=== PATIENT | female | born 1995 | race Caucasian/White ===

== ENCOUNTER → 2016-08-30 | Outpatient (CLI) | payer OTHER, MEDICAID ==
[~2016-08-30] MED LIST: ACET50TA PO; ANUS2.5C2 EXT; DOCU10ELUD PO; IBUP80TA PO; MOM30SS PO; PNV-CAP5 PO
[2016-08-30 13:07] LABS: BASO % 0.4 % (0.0-1.0); EOS # 0.1 K/mm3 (0.0-0.50); EOS % 0.8 % (0.0-3.0); LARGE UNSTAINED CELL # 0.1 K/mm3 (0.0-0.4); LARGE UNSTAINED CELL % 1.1 % (0.0-4.0); LYMPH # 1.7 K/mm3 (1.5-6.5); LYMPH % 21.8 % (24.0-44.0); MEAN CORPUSCULAR HEMOGLOBIN 30.8 pg (27.0-33.0); MEAN CORPUSCULAR HGB CONC 34.5 g/dl (32.0-36.5); MEAN CORPUSCULAR VOLUME 89.3 fl (80.0-96.0); MONO # 0.3 K/mm3 (0.0-0.8); MONO % 4.5 % (0.0-5.0); NEUTROPHILS # 5.3 K/mm3 (1.8-7.7); NEUTROPHILS % 71.5 % (36.0-66.0); PLATELET COUNT, AUTOMATED 235 k/mm3 (150-450); RED CELL DISTRIBUTION WIDTH 12.8 % (11.5-14.5); WHITE BLOOD COUNT 7.4 K/mm3 (4.0-10.0)
[2016-08-30 13:31] LABS: HBsAg Prenatal NEGATIVE (NEGATIVE)
[2016-08-30 14:26] LABS: CONTROL LINE INT CTR LINE PRESENT; HIV SCRN NEGATIVE (NEGATIVE); HIV SCRN1 NEGATIVE (NEGATIVE)
== END ==
LOC: M SMT 09:42
PROVIDERS: ATTEND Specialist
DX: Z36 Encounter for antenatal screening of mother (principal); Z3A.00 Weeks of gestation of pregnancy not specified

== ENCOUNTER → 2016-09-08 | Outpatient (REF) | payer OTHER, MEDICAID | LOC: M LAB REF 17:14 | PROVIDERS: ATTEND Advanced Practice Midwife | DX: Z36 Encounter for antenatal screening of mother (principal); Z3A.00 Weeks of gestation of pregnancy not specified ==

== ENCOUNTER → 2016-10-01 | Outpatient (CLI) | payer OTHER, MEDICAID ==
--- NOTE | 2016-10-01 15:34 | REP ---
Obstetric ultrasound for anatomy: There is a single intrauterine gestation in a breech presentation. There is movement and cardiac activity. heart rate is 153 beats per minute. The placenta is posterior. There is no placenta previa or abruptio. Placenta demonstrates grade zero maturity. The amniotic fluid volume subjectively is normal. The cervix is 3.4 cm length. Maternal adnexa and cul-de-sac are unremarkable. By today's measurements the gestational age is 20 weeks 0 days with an [place] of 02/18/2017. The LMP is unknown. weight is 356 grams (0 pounds, 12 ounces). This is the 64th percentile for 20 weeks 0 days. The following anatomic structures are identified and are unremarkable: Cranium, choroid plexus, cavum, cerebellum, posterior fossa, cisterna magna, facial profile, lungs, four-chamber heart, cardiac right and left ventricular outflow tracts, diaphragm, stomach, cord insertion, three-vessel cord, kidneys, bladder, spine and upper lower extremities. No anomalies are identified. Sign taking Signed by Roger Sagastume MD 10/01/2016 03:25 P
== END ==
LOC: M SMT 13:50
PROVIDERS: ATTEND Advanced Practice Midwife
DX: Z36 Encounter for antenatal screening of mother (principal); O32.1XX0 Maternal care for breech presentation, not applicable or unspecified; Z3A.20 20 weeks gestation of pregnancy

== ENCOUNTER → 2016-10-06 | Outpatient (CLI) | payer OTHER | LOC: M SMT 14:16 | PROVIDERS: ATTEND Advanced Practice Midwife | DX: Z31.438 Encounter for other genetic testing of female for procreative management (principal); Z3A.20 20 weeks gestation of pregnancy ==

== ENCOUNTER → 2016-11-30 | Outpatient (CLI) | payer OTHER, MEDICAID ==
[2016-11-30 20:16] LABS: MEAN CORPUSCULAR HEMOGLOBIN 30.9 pg (27.0-33.0); MEAN CORPUSCULAR HGB CONC 33.4 g/dl (32.0-36.5); MEAN CORPUSCULAR VOLUME 92.4 fl (80.0-96.0); RED CELL DISTRIBUTION WIDTH 12.6 % (11.5-14.5)
== END ==
LOC: M SMT 13:40
PROVIDERS: ATTEND Advanced Practice Midwife
DX: Z36 Encounter for antenatal screening of mother (principal); Z3A.00 Weeks of gestation of pregnancy not specified

== ENCOUNTER → 2017-01-25 | Outpatient (REF) | payer OTHER, MEDICAID ==
[~2017-01-25] MED LIST changes: +DIBU10OI TOP; +IBUP-1114 PO; +PRENTAB9 PO
== END ==
LOC: M LAB REF 12:54
PROVIDERS: ATTEND Advanced Practice Midwife
DX: Z34.83 Encounter for supervision of other normal pregnancy, third trimester (principal)

== ENCOUNTER 2017-02-20 02:23 | Inpatient (IN) | payer OTHER, MEDICAID ==
[~2017-02-20] VITALS: Ht 154.9 cm; Wt 97.0 kg
[2017-02-20] VITALS (18 sets, daily range): BP systolic 98–130; BP diastolic 54–75
[~2017-02-20 02:23] MED LIST changes: -DIBU10OI TOP; -IBUP-1114 PO; -PRENTAB9 PO
[2017-02-20 03:07] LABS: MEAN CORPUSCULAR HEMOGLOBIN 28.1 pg (27.0-33.0); MEAN CORPUSCULAR HGB CONC 33.3 g/dl (32.0-36.5); MEAN CORPUSCULAR VOLUME 84.4 fl (80.0-96.0); RED CELL DISTRIBUTION WIDTH 13.3 % (11.5-14.5); WHITE BLOOD COUNT 11.5 K/mm3 (4.0-10.0)
--- NOTE | 2017-02-20 06:30 | HPE ---
DATE OF ADMISSION: 02/20/2017 HISTORY: 21-year-old, (G) 2, para (P) 1 female, at 40-2/7 weeks gestation by 20 week ultrasound, estimated date of confinement (EDC) of 02/18/2017, presents with regular contractions every 3-4 minutes for the last several hours. She passed her mucous plug She denies vaginal bleeding. COURSE: The patient initiated care at 20 weeks gestation on 09/08/2016. Her blood pressure was 92/56. She had no complications during care. OBSTETRICAL HISTORY: 2012, 41 week vaginal delivery, 8 pound 14 ounce female , no complications. MEDICAL HISTORY: None. SURGERIES: Noncontributory. ALLERGIES: None. SOCIAL HISTORY: The patient smokes cigarettes. She denies alcohol or drug use during . FAMILY HISTORY: Noncontributory. PHYSICAL EXAMINATION: Blood pressure 118/70. Pulse 84. She appeared mildly uncomfortable. Head and neck exam normal. Lungs clear. Heart regular rate and rhythm. Abdomen nontender, gravid. heart tones category 1. Contractions every 4 minutes. Sterile vaginal exam: 4 cm, 70% and -2 station, vertex. Extremities nontender. LABORATORIES: Blood type A negative, rubella immune. RPR nonreactive. Hepatitis B and C negative. HIV negative. GBS negative. ASSESSMENT: 21-year-old, 2, para 1 female, at 40-2/7 weeks gestation, presents in early labor. Plan is to admit on 02/20/2017.
[2017-02-20] MEDS ORDERED: OXYTOCIN 30 UNITS IN 0.9% NaCl 500ML IV BAG (J2590) As Ordered ONE (17:25)
[2017-02-20] MEDS ORDERED: PROMETHAZINE INJ 25 MG/ML VIAL (J2550) IV ONE (18:00)
[2017-02-20] MEDS ORDERED: BUTORPHANOL 2 MG/ML INJ (J0595) IV ONE (18:00)
[2017-02-20 20:16] LABS: CORD GAS ABE A -4.1; CORD GAS HCO3 A 21.3 MEQ/L; CORD GAS O2 SAT A 86.1 %; CORD GAS PCO2 A 40.4 mmHg; CORD GAS PH A 7.34 UNITS; CORD GAS PO2 A 44.1 mmHg; CORD GAS SBC A 20.8 MEQ/L; CORD GAS TCO2 A 22.5 MEQ/L
[2017-02-20 20:18] LABS: CORD GAS ABE V -3.9; CORD GAS HCO3 V 22.4 MEQ/L; CORD GAS O2 SAT V 70.5 %; CORD GAS PCO2 V 44.7 mmHg; CORD GAS PH V 7.317 UNITS; CORD GAS PO2 V 31.9 mmHg; CORD GAS SBC V 20.6 MEQ/L; CORD GAS TCO2 V 23.7 MEQ/L
[2017-02-20] MEDS ORDERED: OXYTOCIN DRIP 30 UNITS in APPROPRIATE DILUENT 1 EA IV SCH (20:44)
[2017-02-20] MEDS ORDERED: DIBUCAINE 1% OINTMENT 30GM TOP PRN (20:45)
[2017-02-20] MEDS ORDERED: ANUSOL HC CREAM 30GM TOP PRN (20:45)
[2017-02-20] MEDS ORDERED: miSOPROStol 200 MCG TAB (S0191) PR ONE (20:45)
[2017-02-20] MEDS ORDERED: ACETAMINOPHEN 500 MG TAB PO PRN (20:45)
[2017-02-20] MEDS ORDERED: MEASLES,MUMPS,RUBELLA VACCINE INJ (MMR-II) (90707) SC SCH (20:45)
[2017-02-20] MEDS ORDERED: MOM 30ML SUSPENSION UDC PO PRN (20:45)
[2017-02-20] MEDS ORDERED: LIDOCAINE 1% MDV INJ 50 ML VIAL INFIL ONE (20:45)
[2017-02-20] MEDS ORDERED: RHOGAM 300 MCG (1500 IU) INJ (J2790) IM SCH (20:45)
[2017-02-20] MEDS ORDERED: DOCUSATE SODIUM 100 MG CAP PO PRN (20:45)
[2017-02-20] MEDS: METHYLERGONOVINE MALEATE 0.2 MG TAB PO SCH (21:12)
[2017-02-20] MEDS: IBUPROFEN 800 MG TAB PO PRN (21:31)
[2017-02-21] MEDS: METHYLERGONOVINE MALEATE 0.2 MG TAB PO SCH ×3 (04:43→16:04)
--- NOTE | 2017-02-21 05:08 | DN ---
DATE OF SERVICE: 02/20/2017 Spontaneous active labor. Artificial rupture of membranes clear fluid, moderate amount at 1515. Utilized Stadol and Phenergan for labor coping times one. Fully dilated at 1956. Head delivered left occiput anterior (MEET) at 2001, then restituted to left occiput posterior (LOP), 2-minute shoulder dystocia encountered relieved with Wes, suprapubic pressure, and attempts to deliver the posterior shoulder. intensive care unit (NICU) and assistance were requested. Viable male delivered LOP after relief of obstruction and reduction of loose nuchal cord at 2003. Limp noted. Tactile stimulation and bulb suction at the perineum. Cord immediately doubly clamped and cut by blacksmith hammer operator and brought to warmer for suction by nurses. Infant received approximately [address] Zhang arrived shortly after delivery. scores 5 and 9. Cord gases sent. Results arterial 7.34 and venous 7.317. moving all extremities equally. Placenta Lantigua intact with three-vessel cord and long trailing membranes at 2011. Marginal cord insertion was noted. Fundus firmed with massage and intravenous (IV) Pitocin bolus. Estimated blood loss 500 mL. Misoprostol 1000 mcg rectally placed with excellent control with uterine atony. Perineum, cervix and vagina inspected. First-degree laceration to posterior vaginal wall repaired with 3-0 Vicryl Rapide. Sponge, sharp and instrument count correct. Infant weight 4706 grams, 10 pounds 6 ounces. Mother is naming her son Michael. was attended by Imelda Negron, student nurse blacksmith hammer operator and by myself. [facility]
[2017-02-21 06:18] VITALS: BP 132/67
[2017-02-21] MEDS: PRENATAL VITAMINS CHEWABLE TABLET PO SCH (08:54)
[2017-02-21] MEDS ORDERED: PRENTAB9 PO (09:26)
[2017-02-21] MEDS ORDERED: ACET50TA PO (09:28)
[2017-02-21] MEDS ORDERED: IBUP-1114 PO (09:30)
[2017-02-21] MEDS: IBUPROFEN 800 MG TAB PO PRN (16:06)
[2017-02-21 17:52] VITALS: BP 113/57
[2017-02-21] MEDS ORDERED: METHYLERGONOVINE MALEATE 0.2 MG TAB PO PRN (22:00)
[2017-02-22 06:04] VITALS: BP 109/62
[2017-02-22] MEDS ORDERED: DIBU10OI TOP (07:45)
[2017-02-22] MEDS: PRENATAL VITAMINS CHEWABLE TABLET PO SCH (07:59)
== END 2017-02-22 09:37 | disposition home or self-care (01) | DRG 560 ==
LOC: M LDO 02:23 → EEVIPCON 02:41 → M LDI 02:41 → M OBS 22:29
PROVIDERS: ADMIT Specialist; ATTEND Advanced Practice Midwife
PROC: 10E0XZZ Delivery of Products of Conception, External Approach (ICD-10-PCS; principal; 2017-02-20)
PROC: 0HQ9XZZ Repair Perineum Skin, External Approach (ICD-10-PCS; 2017-02-20)
PROC: 10907ZC Drainage of Amniotic Fluid, Therapeutic from Products of Conception, Via Natural or Artificial Opening (ICD-10-PCS; 2017-02-20)
DX: O48.0 Post-term pregnancy (principal); F17.210 Nicotine dependence, cigarettes, uncomplicated; O99.334 Smoking (tobacco) complicating childbirth; Z3A.40 40 weeks gestation of pregnancy; O66.0 Obstructed labor due to shoulder dystocia; O69.81X0 Labor and delivery complicated by cord around neck, without compression, not applicable or unspecified; O70.0 First degree perineal laceration during delivery; Z37.0 Single live birth

== ENCOUNTER → 2017-05-11 | Outpatient (REF) | payer OTHER, MEDICAID ==
[~2017-05-11] MED LIST changes: +DIBU10OI TOP; +IBUP-1114 PO; +PRENTAB9 PO
== END ==
LOC: M LAB REF 13:19
PROVIDERS: ATTEND Advanced Practice Midwife
DX: Z12.4 Encounter for screening for malignant neoplasm of cervix (principal)

== ENCOUNTER → 2021-07-14 | Outpatient (CLI) | payer OTHER ==
[~2021-07-14] MED LIST changes: -ACET50TA PO; -DIBU10OI TOP; +DIBU28OI2 TOP; -DOCU10ELUD PO; +DOCU5LIQ PO; +MAPA500T17 PO; +MAPA500T2 PO
== END ==
LOC: M PLALAB 10:35
PROVIDERS: ATTEND Advanced Practice Midwife
DX: O20.0 Threatened abortion (principal)

== ENCOUNTER 2021-07-16 10:03 | Emergency (ER) | payer OTHER ==
[~2021-07-16] VITALS: Ht 154.9 cm; Wt 90.9 kg
[2021-07-16 10:47] LABS: BASO # 0.1 10^3/uL (0.0-0.2); BASO % 0.8 % (0.0-1.0); EOS % 0.5 % (0.0-3.0); HEMATOCRIT 42.4 % (36.0-47.0); HEMOGLOBIN 13.9 g/dl (12.0-15.5); LYMPH # 2.1 10^3/uL (1.5-5.0); LYMPH % 26.9 % (24.0-44.0); MEAN CORPUSCULAR HEMOGLOBIN 30.2 pg (27.0-33.0); MEAN CORPUSCULAR HGB CONC 32.8 g/dl (32.0-36.5); MONO # 0.5 10^3/uL (0.0-0.8); MONO % 6.5 % (2.0-8.0); PLATELET COUNT, AUTOMATED 210 10^3/uL (150-450); RED BLOOD COUNT 4.61 10^6/uL (4.00-5.40); WHITE BLOOD COUNT 7.7 10^3/uL (4.0-10.0)
[2021-07-16 11:34] LABS: BLOOD UREA NITROGEN 9 MG/DL (7-18); CALCIUM LEVEL 9.2 MG/DL (8.5-10.1); CARBON DIOXIDE LEVEL 29 MEQ/L (21-32); CHLORIDE LEVEL 108 MEQ/L (98-107); CREATININE FOR GFR 0.64 MG/DL (0.55-1.30); GLOMERULAR FILTRATION RATE > 60.0 (>60); GLUCOSE, FASTING 99 MG/DL (70-100); HCG, SERUM QUANTITATIVE 1146 MIU/ML; POTASSIUM SERUM 4.2 MEQ/L (3.5-5.1); SODIUM LEVEL 142 MEQ/L (136-145)
[2021-07-16] MEDS ORDERED: RHOGAM 300 MCG (1500 IU) INJ (J2790) IM ONE (14:05)
[2021-07-16 14:08] LABS: GC DNA AMPLIFICATION NEGATIVE (NEGATIVE)
[2021-07-16] MEDS ORDERED: DOXYCYCLINE HYCLATE 100MG TABLET PO ONE (14:30)
[2021-07-16 14:58] VITALS: BP 121/67
[2021-07-16] MEDS ORDERED: DOXY-443 PO (15:00)
== END 2021-07-16 15:09 | disposition home or self-care (01) ==
LOC: M ED 10:03
DX: O20.9 Hemorrhage in early pregnancy, unspecified (principal); F17.210 Nicotine dependence, cigarettes, uncomplicated; O99.330 Smoking (tobacco) complicating pregnancy, unspecified trimester; O98.319 Other infections with a predominantly sexual mode of transmission complicating pregnancy, unspecified trimester; A74.9 Chlamydial infection, unspecified; Z3A.00 Weeks of gestation of pregnancy not specified
CPT/HCPCS: 76801; 76817; 80048; 81001; 84702; 85025; 86850; 86900; 86901; 87210; 87808; 87810; 87850; 93976; 96372; 99284; J2790

== ENCOUNTER → 2021-09-04 | Outpatient (CLI) | payer OTHER ==
[~2021-09-04] MED LIST changes: +DOXY-443 PO
[2021-09-04 16:39] LABS: GC DNA AMPLIFICATION NEGATIVE (NEGATIVE)
== END ==
LOC: M PLALAB 12:10
PROVIDERS: ATTEND Obstetrics & Gynecology
DX: Z20.2 Contact with and (suspected) exposure to infections with a predominantly sexual mode of transmission (principal)

== ENCOUNTER → 2022-01-21 | Outpatient (REF) | LOC: M LABSMTC 11:09 | PROVIDERS: ATTEND Family Medicine | DX: Z11.52 Encounter for screening for COVID-19 (principal) ==

== ENCOUNTER → 2022-02-10 | Outpatient (REF) | LOC: M EMP 12:43 | PROVIDERS: ATTEND Family Medicine | DX: Z11.52 Encounter for screening for COVID-19 (principal) ==

== ENCOUNTER → 2022-02-14 | Outpatient (REF) | LOC: M LABSMTC 10:17 | PROVIDERS: ATTEND Family Medicine | DX: Z11.52 Encounter for screening for COVID-19 (principal) ==

== ENCOUNTER → 2022-05-24 | Outpatient (REF) ==
[2022-05-24 13:53] LABS: RSV AMPLIFICATION NEGATIVE (NEGATIVE)
== END ==
LOC: M LABSMTC 11:37
PROVIDERS: ATTEND Family Medicine
DX: Z00.00 Encounter for general adult medical examination without abnormal findings (principal)

== ENCOUNTER → 2022-10-21 | Outpatient (REF) | payer OTHER | LOC: M LAB REF 16:01 | PROVIDERS: ATTEND Physician Assistant | DX: N91.2 Amenorrhea, unspecified (principal) ==

== ENCOUNTER → 2023-01-17 | Outpatient (CLI) | payer OTHER ==
[2023-01-17 13:47] LABS: HEMATOCRIT 39.7 % (36.0-47.0); HEMOGLOBIN 13.2 g/dl (12.0-15.5); MEAN CORPUSCULAR HEMOGLOBIN 30.8 pg (27.0-33.0); MEAN CORPUSCULAR HGB CONC 33.2 g/dl (32.0-36.5); MEAN CORPUSCULAR VOLUME 92.5 fl (80.0-96.0); PLATELET COUNT, AUTOMATED 227 10^3/uL (150-450); RED BLOOD COUNT 4.29 10^6/uL (4.00-5.40); WHITE BLOOD COUNT 8.6 10^3/uL (4.0-10.0)
[2023-01-17 14:40] LABS: HIV 1&2 SCREEN NEGATIVE (NEGATIVE)
[2023-01-17 14:49] LABS: HEPATITIS C VIRUS ABY INDEX 0.13 INDEX (<0.8)
[2023-01-17 15:07] LABS: GC DNA AMPLIFICATION NEGATIVE (NEGATIVE)
== END ==
LOC: M PLALAB 09:14
PROVIDERS: ATTEND Specialist
DX: Z34.81 Encounter for supervision of other normal pregnancy, first trimester (principal)

== ENCOUNTER → 2023-03-04 | Outpatient (CLI) | payer OTHER | LOC: M WHC 08:49 | PROVIDERS: ATTEND Advanced Practice Midwife | DX: Z34.92 Encounter for supervision of normal pregnancy, unspecified, second trimester (principal) ==

== ENCOUNTER → 2023-04-04 | Outpatient (REF) | LOC: M EMP 11:59 | PROVIDERS: ATTEND Family Medicine | DX: Z11.52 Encounter for screening for COVID-19 (principal) ==

== ENCOUNTER → 2023-04-19 | Outpatient (CLI) | payer OTHER ==
[2023-04-19 15:09] LABS: HEMATOCRIT 34.7 % (36.0-47.0); HEMOGLOBIN 11.2 g/dl (12.0-15.5); MEAN CORPUSCULAR HEMOGLOBIN 29.9 pg (27.0-33.0); MEAN CORPUSCULAR HGB CONC 32.3 g/dl (32.0-36.5); MEAN CORPUSCULAR VOLUME 92.8 fl (80.0-96.0); PLATELET COUNT, AUTOMATED 205 10^3/uL (150-450); RED BLOOD COUNT 3.74 10^6/uL (4.00-5.40); WHITE BLOOD COUNT 9.4 10^3/uL (4.0-10.0)
[2023-04-19 16:26] LABS: GC DNA AMPLIFICATION NEGATIVE (NEGATIVE)
== END ==
LOC: M PLALAB 08:13
PROVIDERS: ATTEND Obstetrics & Gynecology
DX: Z34.92 Encounter for supervision of normal pregnancy, unspecified, second trimester (principal)

== ENCOUNTER → 2023-05-30 | Outpatient (REF) ==
[2023-05-30 09:28] LABS: RSV AMPLIFICATION NEGATIVE (NEGATIVE)
== END ==
LOC: M EMP 07:25
PROVIDERS: ATTEND Family Medicine
DX: Z11.52 Encounter for screening for COVID-19 (principal)

== ENCOUNTER → 2023-06-23 | Outpatient (REF) | payer OTHER | LOC: M SFHCWAGY 15:37 | PROVIDERS: ATTEND Obstetrics & Gynecology | DX: Z36.85 Encounter for antenatal screening for Streptococcus B (principal); Z3A.36 36 weeks gestation of pregnancy ==

== ENCOUNTER → 2023-06-24 | Outpatient (CLI) | payer OTHER | LOC: M WHC 08:05 | PROVIDERS: ATTEND Obstetrics & Gynecology | DX: O24.419 Gestational diabetes mellitus in pregnancy, unspecified control (principal); Z3A.36 36 weeks gestation of pregnancy ==

== ENCOUNTER 2023-07-07 07:21 | Inpatient (IN) | payer OTHER, MEDICAID ==
[~2023-07-07] VITALS: Ht 154.9 cm; Wt 102.5 kg
[2023-07-07] VITALS (11 sets, daily range): BP systolic 110–147; BP diastolic 55–86; TEMP 98.7; O2SAT 96–100
[2023-07-07] MEDS ORDERED: HOME MED LIST COMPLETE! XX SCH (07:55)
[2023-07-07] MEDS ORDERED: METHYLERGONOVINE MALEATE 0.2MG/ML 1ML VIAL IM PRN (08:05)
[2023-07-07] MEDS ORDERED: TRANEXAMIC ACID INJection 1,000 MG in NS 100 ML IV PRN (08:05)
[2023-07-07] MEDS ORDERED: CARBOPROST TROMETHAMINE 250 MCG/ML AMP IM PRN (08:05)
[2023-07-07] MEDS ORDERED: LACTATED RINGER'S 1000 ML IV PRN (08:05)
[2023-07-07] MEDS ORDERED: OXYTOCIN DRIP 30 UNITS in IV 1 EA IV PRN ×4 (08:05)
[2023-07-07 08:54] LABS: HEMOGLOBIN 10.4 g/dl (12.0-15.5); MEAN CORPUSCULAR HGB CONC 32.5 g/dl (32.0-36.5); PLATELET COUNT, AUTOMATED 195 10^3/uL (150-450); RED BLOOD COUNT 3.72 10^6/uL (4.00-5.40); WHITE BLOOD COUNT 8.4 10^3/uL (4.0-10.0)
[2023-07-07] MEDS ORDERED: ceFAZolin SOD 2 GM in IV 1 EA IV ONE (10:35)
[2023-07-07] MEDS ORDERED: BICITRA 30ML SOLN UDC PO ONE (10:35)
[2023-07-07] MEDS ORDERED: LR 1,000 ML IV SCH ×2 (10:55→17:05)
[2023-07-07] MEDS ORDERED: ONDANSETRON 4MG 2ML VIAL As Ordered ONE (14:36)
[2023-07-07] MEDS ORDERED: MORPHINE PRES-FREE INJ 10 MG/10 ML VIAL As Ordered ONE (14:36)
[2023-07-07] MEDS ORDERED: KETOROLAC 60MG 2ML VIAL As Ordered ONE (14:36)
[2023-07-07] MEDS ORDERED: PHENYLephrine 500MCG 5ML (100MCG/ML) SYRINGE As Ordered ONE (15:02)
[2023-07-07] MEDS ORDERED: ePHEDrine SULFATE 25 MG/5 ML(5MG/ML) SYRINGE As Ordered ONE (15:02)
[2023-07-07] MEDS ORDERED: OXYTOCIN 30UNITS IN 0.9% NaCl 500ML IV BAG As Ordered ONE (15:05)
[2023-07-07] MEDS ORDERED: METOCLOPRAMIDE INJ 10MG/2ML VIAL As Ordered ONE (15:17)
[2023-07-07] MEDS ORDERED: MIDAZOLAM INJ 2MG/2ML VIAL As Ordered ONE (15:54)
[2023-07-07] MEDS ORDERED: CARBOPROST TROMETHAMINE 250 MCG/ML AMP ONE (16:00)
[2023-07-07] MEDS ORDERED: METHYLERGONOVINE MALEATE 0.2MG/ML 1ML VIAL ONE (16:00)
[2023-07-07 16:17] LABS: HEMOGLOBIN 9.8 g/dl (12.0-15.5); MEAN CORPUSCULAR HEMOGLOBIN 27.5 pg (27.0-33.0); MEAN CORPUSCULAR HGB CONC 31.6 g/dl (32.0-36.5); MEAN CORPUSCULAR VOLUME 87.1 fl (80.0-96.0); PLATELET COUNT, AUTOMATED 157 10^3/uL (150-450); RED BLOOD COUNT 3.56 10^6/uL (4.00-5.40); WHITE BLOOD COUNT 9.1 10^3/uL (4.0-10.0)
[2023-07-07 16:28] LABS: PARTIAL THROMBOPLASTIN TIME 24.3 SECONDS (24.8-34.2)
[2023-07-07 16:29] LABS: INR 1.06; PROTHROMBIN TIME 13.5 SECONDS (12.5-14.5)
[2023-07-07] MEDS: ACETAMINOPHEN 500 MG TAB PO SCH ×2 (16:40→21:41)
[2023-07-07] MEDS ORDERED: RHOGAM 300MCG (1500IU) INJ IM SCH (16:40)
[2023-07-07] MEDS ORDERED: DOCUSATE SODIUM 100MG CAPSULE PO PRN (16:40)
[2023-07-07] MEDS ORDERED: oxyCODONE 5MG TAB PO PRN (16:40)
[2023-07-07] MEDS ORDERED: SIMETHICONE 80MG CHEW TAB PO PRN (16:40)
[2023-07-07] MEDS ORDERED: MEPERIDINE 25 MG/ML 1ML VIAL IV PRN (17:05)
[2023-07-07] MEDS ORDERED: **NOTE PATIENT COMMENT** MISC XX SCH (17:05)
[2023-07-07] MEDS ORDERED: NALBUPHINE HCL 1MG/0.1ML (100MG/10ML) MDV IV PRN (17:05)
[2023-07-07] MEDS ORDERED: diphenhydrAMINE 50MG/ML VIAL IV PRN (17:05)
[2023-07-07] MEDS ORDERED: NALOXONE INJ 0.4MG/1ML VIAL IV PRN ×2 (17:05)
[2023-07-07] MEDS ORDERED: LOPERAMIDE 2 MG CAPLET PO PRN (17:05)
[2023-07-07] MEDS: SLF 3 ML SYR IV SCH (17:05)
[2023-07-07] MEDS ORDERED: MORPHINE 2 MG/ML 1ML VIAL IV PRN (17:05)
[2023-07-07] MEDS ORDERED: METOCLOPRAMIDE INJ 10MG/2ML VIAL IV PRN (17:05)
[2023-07-07] MEDS ORDERED: ONDANSETRON 4MG 2ML VIAL IV PRN (17:05)
[2023-07-07] MEDS ORDERED: MEPERIDINE 25 MG/ML 1ML VIAL As Ordered ONE (17:37)
[2023-07-07] MEDS ORDERED: COLA100C5 PO (19:32)
[2023-07-07] MEDS ORDERED: IBUP-1022 PO (19:32)
[2023-07-07] MEDS ORDERED: OXYC-517 PO (19:32)
[2023-07-07] MEDS ORDERED: ACET-683 PO (19:32)
[2023-07-07] MEDS: KETOROLAC 30 MG/ML 1ML VIAL IV SCH (21:41)
[2023-07-08] MEDS: SLF 3 ML SYR IV SCH ×2 (01:05→08:04)
[2023-07-08] MEDS: ACETAMINOPHEN 500 MG TAB PO SCH ×4 (03:53→23:04)
[2023-07-08] MEDS: KETOROLAC 30 MG/ML 1ML VIAL IV SCH ×2 (03:53→09:28)
[2023-07-08 06:00] VITALS: BP 108/52; O2SAT 99
[2023-07-08 06:33] LABS: HEMATOCRIT 27.1 % (36.0-47.0); HEMOGLOBIN 8.9 g/dl (12.0-15.5); MEAN CORPUSCULAR HEMOGLOBIN 28.7 pg (27.0-33.0); MEAN CORPUSCULAR HGB CONC 32.8 g/dl (32.0-36.5); MEAN CORPUSCULAR VOLUME 87.4 fl (80.0-96.0); PLATELET COUNT, AUTOMATED 122 10^3/uL (150-450); WHITE BLOOD COUNT 12.6 10^3/uL (4.0-10.0)
[2023-07-08] MEDS: oxyCODONE 5MG TAB PO PRN ×2 (07:19→15:44)
[2023-07-08] MEDS: PRENATAL VITAMINS CHEWABLE TABLET PO SCH (08:03)
[2023-07-08] MEDS: ENOXAPARIN 30MG/0.3ML SYRINGE (J1650 PER 10MG) SC SCH ×2 (08:04→20:17)
[2023-07-08] MEDS ORDERED: TRANEXAMIC ACID 100 MG/ML 10ML VIAL As Ordered ONE (08:38)
[2023-07-08] MEDS ORDERED: PRENATAL VITAMINS CHEWABLE TABLET PO SCH (09:00)
[2023-07-08 10:00] VITALS: BP 122/68; O2SAT 100
[2023-07-08 14:00] VITALS: BP 128/75; O2SAT 100
[2023-07-08] MEDS: IBUPROFEN 600MG TAB PO SCH ×2 (16:51→23:04)
[2023-07-08 18:03] VITALS: BP 129/73; O2SAT 100
[2023-07-08 22:00] VITALS: BP 99/57; O2SAT 99
[2023-07-09 02:00] VITALS: BP 110/55; O2SAT 98
[2023-07-09] MEDS: ACETAMINOPHEN 500 MG TAB PO SCH ×2 (04:49→11:19)
[2023-07-09] MEDS: IBUPROFEN 600MG TAB PO SCH ×2 (04:50→11:18)
[2023-07-09 06:00] VITALS: BP 116/69; O2SAT 100
[2023-07-09] MEDS ORDERED: MEASLES,MUMPS,RUBELLA VACCINE INJ (MMR-II) SC.IMMUN ONE (09:00)
[2023-07-09] MEDS: PRENATAL VITAMINS CHEWABLE TABLET PO SCH (09:24)
[2023-07-09] MEDS: ENOXAPARIN 30MG/0.3ML SYRINGE (J1650 PER 10MG) SC SCH (09:24)
[2023-07-09 10:00] VITALS: BP 109/63; O2SAT 99
== END 2023-07-09 13:07 | disposition home or self-care (01) | DRG 540 ==
LOC: M LDI 07:21 → M OBS 18:25
PROVIDERS: ADMIT Obstetrics & Gynecology; ATTEND Obstetrics & Gynecology
PROC: 30233N1 Transfusion of Nonautologous Red Blood Cells into Peripheral Vein, Percutaneous Approach (ICD-10-PCS; 2023-07-07)
PROC: 10D00Z1 Extraction of Products of Conception, Low, Open Approach (ICD-10-PCS; principal; 2023-07-07 14:30)
DX: O24.420 Gestational diabetes mellitus in childbirth, diet controlled (principal); O72.1 Other immediate postpartum hemorrhage; O71.7 Obstetric hematoma of pelvis; Z3A.38 38 weeks gestation of pregnancy; Z37.0 Single live birth; O99.334 Smoking (tobacco) complicating childbirth; F17.210 Nicotine dependence, cigarettes, uncomplicated; O09.293 Supervision of pregnancy with other poor reproductive or obstetric history, third trimester

== ENCOUNTER → 2023-09-09 | Outpatient (REF) | payer MEDICAID, OTHER ==
[~2023-09-09] MED LIST changes: +ACET-683 PO; +COLA100C5 PO; +IBUP-1022 PO; +OXYC-517 PO
[2023-09-09 13:26] LABS: APPEARANCE, URINE HAZY (CLEAR); BACTERIA, URINE AUTO NEGATIVE (NEGATIVE); BILIRUBIN, URINE AUTO NEGATIVE (NEGATIVE); BLOOD, URINE BLOOD NEGATIVE (NEGATIVE); COLOR, URINE YELLOW (YELLOW); GLUCOSE, URINE (UA) AUTO NEGATIVE (NEGATIVE); KETONE, URINE AUTO NEGATIVE (NEGATIVE); LEUKOCYTE ESTERASE, URINE AUTO NEGATIVE (NEGATIVE); MUCUS, URINE SMALL (NEGATIVE); NITRITE, URINE AUTO NEGATIVE (NEGATIVE); PROTEIN, URINE AUTO NEGATIVE (NEGATIVE); RBC, URINE AUTO 1 /HPF (0-3); SPECIFIC GRAVITY URINE AUTO 1.018 (1.002-1.035); SQUAMOUS EPITHELIAL CELL UR AU 7 /HPF (0-6); UROBILINOGEN, URINE AUTO 0.2 mg/dL (0.0-2.0); WBC, URINE AUTO 0 /HPF (0-3)
== END ==
LOC: M PLALAB 11:36
PROVIDERS: ATTEND Obstetrics & Gynecology
DX: R39.15 Urgency of urination (principal)